=== PATIENT | male | born 1960 | race Caucasian/White ===

== ENCOUNTER 2017-06-12 09:05 | Day surgery (SDC) | payer OTHER ==
[2017-06-12] MEDS ORDERED: MIDAZOLAM 1 MG/ML 2 ML INJ ×2 (11:10)
[2017-06-12] MEDS ORDERED: FENTAnyl 50 MCG/ML VIAL ×2 (11:10)
== END 2017-06-12 11:31 | disposition home or self-care (01) ==
LOC: GIL 09:05
DX: Z12.11 Encounter for screening for malignant neoplasm of colon (principal); K64.8 Other hemorrhoids; E11.9 Type 2 diabetes mellitus without complications
CPT/HCPCS: 45378